=== PATIENT | female | born 1960 | race Caucasian/White ===

== ENCOUNTER → 2018-05-21 20:27 | Outpatient (CLI) | payer BC ==
[2011-09-04 06:47] VITALS: BMI 38.0
== END | disposition home or self-care (01) ==
LOC: D.MAMMO 10:30
DX: Z12.31 Encounter for screening mammogram for malignant neoplasm of breast (principal)

== ENCOUNTER → 2020-11-29 11:30 | Outpatient (CLI) | payer BC ==
[2011-09-04 06:47] VITALS: BMI 38.0
== END | disposition home or self-care (01) ==
LOC: D.MAMMO 11:30
PROVIDERS: ATTEND Obstetrics & Gynecology
DX: Z12.31 Encounter for screening mammogram for malignant neoplasm of breast (principal)